=== PATIENT | male | born 1995 | race Caucasian/White ===

== ENCOUNTER 2016-11-27 16:24 | Emergency (ER) | payer BC ==
[~2016-11-27] VITALS: Ht 188 cm; Wt 78.5 kg
[~2016-11-27 16:24] MED LIST: ANTICRE6 PO
[2016-11-27 16:35] VITALS: TEMP 38.1; Ht 188 cm; Wt 78.5 kg
[2016-11-27] MEDS ORDERED: ONDANSETRON INJ 2 MG/ML 2 ML VIAL IV STA (16:46)
[2016-11-27] MEDS ORDERED: ALBUT/IPRATROP 3MG/0.5MG NEB 3 ML VIAL INH STA (16:46)
[2016-11-27] MEDS ORDERED: KETOROLAC TROMETHAMINE 30 MG/ML VIAL IV STA (16:46)
[2016-11-27] MEDS ORDERED: SODIUM CHLORIDE 0.9% 1000ML 1,000 ML IV STA (16:46)
[2016-11-27] MEDS ORDERED: PRVHFAIN INH (17:16)
[2016-11-27] MEDS ORDERED: ACET-176 PO (17:16)
[2016-11-27] MEDS ORDERED: IBUP-103 PO (17:16)
[2016-11-27 17:25] VITALS: O2SAT 99
[2016-11-27 17:33] LABS: HEMATOCRIT 40.6 % (42-52); MEAN CELL VOLUME 89.8 fL (80-100); MEAN CORPUSCULAR HEMOGLOBIN 31.2 pg (25-34); MEAN CORPUSCULAR HGB CONC 34.7 g/dl (32-36); MEAN PLATELET VOLUME 10.3 fL (7.4-10.4); PLATELET COUNT 267 K/uL (130-400); RED BLOOD COUNT 4.52 M/uL (4.7-6.1); WHITE BLOOD COUNT 17.37 K/uL (4.8-10.8)
--- NOTE | 2016-11-27 17:35 | EMERGENCY ROOM VISIT NOTE ---
History Report prepared by Lulu: Gordon Pérez Under the Supervision of: Alissa ClementO. First contact with patient: 16:42 Chief Complaint: RESPIRATORY PROBLEMS Stated Complaint: CHEST PAIN, STIFF NECK, FEVER, CHILLS, MORROW History of Present Illness The patient is a 21 year old male who presents to the Emergency Room with complaints of constant stiff neck beginning one day prior to arrival. He currently rates his discomfort as a 3/10 in severity. The patient associates a fever, chills, headache, right sided chest pain, and a productive cough with today's symptoms. He notes his neck pain worsens with movement. The patient states these associated symptoms have been going on for a week, but he went to [facility] yesterday due to the stiff neck. He notes he was given three medications that have no relieved his symptoms and was referred to the ED for a possible lumbar puncture. He was swabbed for flu, but it was negative and did not receive a chest x-ray. The patient states one of his medications has helped alleviate his cough. He notes he took two pills of Zithromax yesterday and one pill today. The patient denies any medical problems or surgeries. He denies tobacco or alcohol use. The patient denies exposure to sick contacts. 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 A total of 10 systems reviewed and were otherwise negative. Past Medical & Surgical Medical Problems: (1) No Known Active Medical Problems Family History Patient reports no known family medical history. Social History Smoking Status: Never Smoker Marital Status: single Housing Status: lives with roommate Occupation Status: [employer] student Current/Historical Medications Scheduled Cefdinir (Omnicef), 600 MG PO DAILY Scheduled PRN Acetaminophen (Apap Extra Strength), 500 MG PO UD PRN for Pain or Fever Albuterol (Ventolin Hfa), 2 PUFFS INH UD PRN for Shortness of Breath Ibuprofen Tab (Advil), 200 MG PO UD PRN for Pain or Fever Allergies Coded Allergies: No Known Allergies (Unverified , 09/19/15) Physical Exam Vital Signs Date Time Temp Pulse Resp B/P Pulse Ox O2 Delivery O2 Flow Rate FiO2 11/27/16 20:07 62 18 106/61 100 11/27/16 18:31 83 18 121/64 97 Room Air 11/27/16 17:25 99 Room Air 11/27/16 17:25 82 11/27/16 16:40 96 Room Air 11/27/16 16:35 38.1 102 22 118/77 99 Room Air Physical Exam GENERAL: Patient is awake, alert, and in no acute distress. Patient is resting comfortably and showing no signs of anxiety EYES: The conjunctivae are clear. The pupils are round and reactive. EARS, NOSE, MOUTH AND THROAT: The nose is without any evidence of any deformity. Clear rhinorrhea bilaterally. Post oral pharynx was clear. Mucous membranes are moist tongue is midline NECK: The patient did have some pain with range of motion, especially with flexion and extension. The neck is nontender and supple. RESPIRATORY: Diminished breath sounds at the right base. Scattered rhonchi noted throughout. CARDIOVASCULAR: Tachycardic but regular rhythm. No definite murmurs noted to auscultations. GASTROINTESTINAL: The abdomen is soft. Bowel sounds are present in all quadrants. Abdomen is nontender MUSCULOSKELETAL/EXTREMITIES: There is no evidence of gross deformity full range of motion is noted in the hips and shoulders SKIN: There is no obvious evidence of any rash. There are no petechiae, pallor or cyanosis noted. NEUROLOGIC: Patient is awake alert and oriented x3 strength is symmetric patellar reflexes are 2+ bilaterally Medical Decision & Procedures ER Provider Diagnostic Interpretation: Radiology results as stated below per my review and radiologist interpretation: CHEST 2 VIEWS ROUTINE CLINICAL HISTORY: Fever. Sepsis. COMPARISON STUDY: No previous studies for comparison. FINDINGS: Lung volumes are normal. There is no pneumothorax or pleural effusion. Right middle lobe consolidation is present. There is no evidence of pulmonary edema. Cardiac size is normal. Mediastinal contours are normal. There may be biapical scarring or blebs/bullae. IMPRESSION: Right middle lobe consolidation suggestive of pneumonia. Post treatment radiographs to ensure resolution are recommended. Electronically signed by: Jamie Lemons M.D. 11/27/2016 5:[address] OF THE HEAD WITHOUT CONTRAST CLINICAL HISTORY: Headache. Fever. COMPARISON STUDY: No previous studies for comparison. CT DOSE: 537.48 mGy.cm TECHNIQUE: Helical axial images of the head were obtained without IV contrast. Automated exposure control was utilized for the study. FINDINGS: No acute intracranial hemorrhage, midline shift or mass effect is present. Brain volume is normal. Ventricular system is normal. The basilar cisterns are patent. No extra-axial collections are present. Lo-white differentiation is maintained. There are no findings to suggest acute dural sinus thrombosis or acute territorial infarct. There are no significant calvarial abnormalities. Visualized portions of the sinuses and mastoid air cells are clear. IMPRESSION: No acute intracranial findings. Electronically signed by: Jamie Lemons M.D. 11/27/2016 6:05 PM Laboratory Results 11/27/16 17:20 Red Blood Count 4.52, Mean Corpuscular Volume 89.8, Mean Corpuscular Hemoglobin 31.2, Mean Corpuscular Hemoglobin Concent 34.7, Mean Platelet Volume 10.3, Neutrophils (%) (Auto) 78.9, Lymphocytes (%) (Auto) 14.7, Monocytes (%) (Auto) 5.8, Eosinophils (%) (Auto) 0.1, Basophils (%) (Auto) 0.2, Neutrophils # (Auto) 13.70, Lymphocytes # (Auto) 2.56, Monocytes # (Auto) 1.01, Eosinophils # (Auto) 0.01, Basophils # (Auto) 0.03 11/27/16 17:20 Test 11/27/16 17:20 White Blood Count 17.37 K/uL (4.8-10.8) Red Blood Count 4.52 M/uL (4.7-6.1) Hemoglobin 14.1 g/dL (14.0-18.0) Hematocrit 40.6 % (42-52) Mean Corpuscular Volume 89.8 fL (80-100) Mean Corpuscular Hemoglobin 31.2 pg (25-34) Mean Corpuscular Hemoglobin Concent 34.7 g/dl (32-36) Platelet Count 267 K/uL (130-400) Mean Platelet Volume 10.3 fL (7.4-10.4) Neutrophils (%) (Auto) 78.9 % Lymphocytes (%) (Auto) 14.7 % Monocytes (%) (Auto) 5.8 % Eosinophils (%) (Auto) 0.1 % Basophils (%) (Auto) 0.2 % Neutrophils # (Auto) 13.70 K/uL (1.4-6.5) Lymphocytes # (Auto) 2.56 K/uL (1.2-3.4) Monocytes # (Auto) 1.01 K/uL (0.11-0.59) Eosinophils # (Auto) 0.01 K/uL (0-0.5) Basophils # (Auto) 0.03 K/uL (0-0.2) RDW Standard Deviation 42.5 fL (36.4-46.3) RDW Coefficient of Variation 12.9 % (11.5-14.5) Immature Granulocyte % (Auto) 0.3 % Immature Granulocyte # (Auto) 0.06 K/uL (0.00-0.02) Erythrocyte Sedimentation Rate 31 mm/hr (0-14) Anion Gap 9.0 mmol/L (3-11) Est Creatinine Clear Calc Drug Dose 109.0 ml/min Estimated GFR () 100.3 Estimated GFR (Non- 86.5 BUN/Creatinine Ratio 10.0 (10-20) Calcium Level 9.3 mg/dl (8.5-10.1) Total Bilirubin 0.8 mg/dl (0.2-1) Direct Bilirubin 0.2 mg/dl (0-0.2) Aspartate Amino Transf (AST/SGOT) 14 U/L (15-37) Alanine Aminotransferase (ALT/SGPT) 24 U/L (12-78) Alkaline Phosphatase 57 U/L (45-117) C-Reactive Protein 18.20 mg/dl (0-0.29) Total Protein 8.3 gm/dl (6.4-8.2) Albumin 3.8 gm/dl (3.4-5.0) Laboratory results per my review. Medications Administered Medications (Trade) Dose Ordered Sig/Zainab Route Start Time Stop Time Status Last Admin Dose Admin Ketorolac Tromethamine 30 mg 30 mg NOW STAT IV 11/27/16 16:46 11/27/16 16:47 DC 11/27/16 17:17 30 MG Sodium Chloride (Nss 1000ml) 1,000 ml @ 999 mls/hr Q1H1M STAT IV 11/27/16 16:46 11/27/16 17:46 DC 11/27/16 16:46 999 MLS/HR Ondansetron HCl (Zofran Inj) 4 mg NOW STAT IV 11/27/16 16:46 11/27/16 16:47 DC 11/27/16 17:16 4 MG Albuterol/ Ipratropium 3 ml 3 ml NOW STAT INH 11/27/16 16:46 11/27/16 16:47 DC 11/27/16 17:18 3 ML Ceftriaxone Sodium/Dextrose (Rocephin Inj/D5 50ml) 70 ml @ 100 mls/hr ONE STAT IV 11/27/16 17:50 11/27/16 18:31 DC 11/27/16 18:16 100 MLS/HR Dexamethasone Sodium Phosphate (Decadron Inj) 10 mg NOW ONCE IV 11/27/16 18:00 11/27/16 18:01 DC 11/27/16 18:15 10 MG ED Course 1644: The patient was evaluated in room B12B. A complete history and physical examination were performed. 1645: Ordered Duoneb 3 ml INH, Zofran Inj 4 mg IV, Sodium Chloride 1,000 ml @ 999 mls/hr IV, Toradol Inj 30 mg iV. 1750: Ordered Ceftriaxone Sodium 2,000 mg/Dextrose 70 ml @ 100 mls/hr IV. 1800: Ordered Decadron Inj 10 mg IV. 1949: Reevaluated the patient at this time, and he would not like a lumbar puncture. 1954: Upon reevaluation, the patient is doing well. I discussed the results and treatment plan with him. He verbalized agreement of the treatment plan. The patient was discharged home. Medical Decision Etiologies such as viral syndrome, otitis, pharyngitis, pneumonia, influenza, meningitis, urinary tract infection, sepsis, bacteremia, as well as others were entertained. Nursing notes reviewed. The patient is a 21-year-old male who presents to emergency department for an evaluation of cough and fever. The patient also had neck pain as well as headache. He was seen initially at the [facility]. He was started on medications for bronchitis including Zithromax. I discussed the patient's laboratory and radiographic studies with him. He was found have signs of an infiltrate on chest x-ray. He was started on IV antibiotics in the emergency department. I discussed the patient's presentation with his mother. He was sent to the emergency department from the [facility] for possible lumbar puncture and for meningitis workup. The patient does not appear to have true meningismus. He does not even of a headache at this time. He was treated with IV fluids IV pain medicine and IV antibiotics in the emergency department for presumed pneumonia. He was encouraged to rest and avoid any strenuous activity. I discussed his condition with his mother over the phone. He was also encouraged to follow-up with his primary care physician for reevaluation but return to emergency department immediately if he developed worsening headache high fever severe pain nausea vomiting or if need arises. Impression Primary Impression: Pneumonia Additional Impression: Fever Scribe Attestation The scribe's documentation has been prepared under my direction and personally reviewed by me in its entirety. I confirm that the note above accurately reflects all work, treatment, procedures, and medical decision making performed by me. Departure Information Dispostion Home / Self-Care Prescriptions Cefdinir (Omnicef) 300 Mg Cap 600 MG PO DAILY, #10 CAP Prov: Sai Almendarez, DO 11/27/16 Referrals [facility] (PCP) Forms HOME CARE DOCUMENTATION FORM, IMPORTANT VISIT INFORMATION, WORK / SCHOOL INSTRUCTIONS Patient Instructions My [facility], Pneumonia Additional Instructions Follow-up with [facility] for reevaluation. Continue using Motrin and Tylenol as directed for fever and body aches. Rest and avoid any strenuous activity. Return to the emergency Department immediately if he develop worsening symptoms such as severe headache severe neck pain seizures or any other worrisome symptoms develop. Problem Qualifiers
[2016-11-27 17:49] LABS: BASO % 0.2 %; BASO ABS # 0.03 K/uL (0-0.2); COMPLETE YES; EOS % 0.1 %; IG% 0.3 %; LYMPH % 14.7 %; LYMPH ABS # 2.56 K/uL (1.2-3.4); MONO % 5.8 %; NEUT % 78.9 %
[2016-11-27] MEDS ORDERED: CEFTRIAXONE SOD INJ 2,000 MG in DEXTROSE 5% 50ML 50 ML IV STA (17:50)
--- NOTE | 2016-11-27 17:53 | DIAGNOSTIC IMAGING REPORT ---
CHEST 2 VIEWS ROUTINE CLINICAL HISTORY: Fever. Sepsis. COMPARISON STUDY: No previous studies for comparison. FINDINGS: Lung volumes are normal. There is no pneumothorax or pleural effusion. Right middle lobe consolidation is present. There is no evidence of pulmonary edema. Cardiac size is normal. Mediastinal contours are normal. There may be biapical scarring or blebs/bullae. IMPRESSION: Right middle lobe consolidation suggestive of pneumonia. Post treatment radiographs to ensure resolution are recommended. Electronically signed by: Jamie Lemons M.D. 11/27/2016 5:51 PM Dictated Date/Time: 11/27/2016 5:50 PM
[2016-11-27 17:57] LABS: C-REACTIVE PROTEIN 18.2 mg/dl (0-0.29); CALCIUM 9.3 mg/dl (8.5-10.1); CREATININE 1.2 mg/dl (0.60-1.40); POTASSIUM 4.2 mmol/L (3.5-5.1)
[2016-11-27] MEDS ORDERED: DEXAMETHASONE SOD INJ 10 MG/ML VIAL IV ONE (18:00)
--- NOTE | 2016-11-27 18:06 | DIAGNOSTIC IMAGING REPORT ---
CT OF THE HEAD WITHOUT CONTRAST CLINICAL HISTORY: Headache. Fever. COMPARISON STUDY: No previous studies for comparison. CT DOSE: 537.48 mGy.cm TECHNIQUE: Helical axial images of the head were obtained without IV contrast. Automated exposure control was utilized for the study. FINDINGS: No acute intracranial hemorrhage, midline shift or mass effect is present. Brain volume is normal. Ventricular system is normal. The basilar cisterns are patent. No extra-axial collections are present. Lo-white differentiation is maintained. There are no findings to suggest acute dural sinus thrombosis or acute territorial infarct. There are no significant calvarial abnormalities. Visualized portions of the sinuses and mastoid air cells are clear. IMPRESSION: No acute intracranial findings. Electronically signed by: Jamie Lemons M.D. 11/27/2016 6:05 PM Dictated Date/Time: 11/27/2016 6:02 PM
[2016-11-27] MEDS ORDERED: CEFD1CAP14 PO (19:59)
[2016-11-27 20:07] VITALS: BP 106/61; PULSE 62; O2SAT 100
== END 2016-11-27 20:09 | disposition home or self-care (01) ==
LOC: C.EDB 16:25
DX: J18.9 Pneumonia, unspecified organism (principal)

== ENCOUNTER 2017-08-09 02:49 | Emergency (ER) | payer BC ==
[~2017-08-09] VITALS: Ht 188 cm; Wt 83.8 kg
[~2017-08-09 02:49] MED LIST changes: +ACET-176 PO; -ANTICRE6 PO; +IBUP-103 PO; +PRVHFAIN INH
[2017-08-09 02:55] VITALS: TEMP 36.4; Ht 188 cm; Wt 83.8 kg
[2017-08-09 03:04] VITALS: O2SAT 97
[2017-08-09 03:36] LABS: BUN/CREATININE RATIO 14.5 (10-20); CALCIUM 8.8 mg/dl (8.5-10.1); CREATININE 1.05 mg/dl (0.60-1.40); POTASSIUM 3.5 mmol/L (3.5-5.1)
--- NOTE | 2017-08-09 03:43 | EMERGENCY ROOM VISIT NOTE ---
History Report prepared by Lulu: Chet Key Under the Supervision of: Dr. Mariama Douglass D.O. First contact with patient: 02:51 Chief Complaint: ALCOHOL OVERDOSE Stated Complaint: ALCOHOL OVERDOSE History of Present Illness The patient is a 22 year old male who presents to the Emergency Room for an alcohol overdose occurring prior to arrival. Per the EMS, the patient was found unresponsive in a stairwell prior to arrival after drinking too much alcohol. He denies any falls. The history is limited secondary to intoxication. Source of History: parent, EMS History Limited By: intoxication Onset: prior to arrival Position: other (global) Quality: other (alcohol overdose) Review of Systems History was limited secondary to intoxication Past Medical & Surgical Medical Problems: (1) No Known Active Medical Problems Family History Patient reports no known family medical history. Social History Smoking Status: Never Smoker Marital Status: single Housing Status: lives with roommate Occupation Status: [employer] student Current/Historical Medications No Active Prescriptions or Reported Meds Allergies Coded Allergies: No Known Allergies (Unverified , 08/09/17) Physical Exam Vital Signs Date Time Temp Pulse Resp B/P (MAP) Pulse Ox O2 Delivery O2 Flow Rate FiO2 08/09/17 08:51 68 16 155/81 94 08/09/17 06:06 64 08/09/17 06:04 64 16 111/44 94 Room Air 08/09/17 05:17 62 16 115/46 95 Room Air 08/09/17 04:06 85 18 104/58 100 Room Air 08/09/17 03:21 56 18 108/54 96 Room Air 08/09/17 03:04 97 Room Air 08/09/17 02:56 56 08/09/17 02:55 95 Room Air 08/09/17 02:55 36.4 64 18 129/83 95 Room Air Physical Exam GENERAL: Smells EtOH, somnolent but arousable. No physical evidence of trauma HEAD: NC/AT EYE EXAM: normal conjunctiva, PERRL and EOM's grossly intact OROPHARYNX: no exudate, no erythema, lips, buccal mucosa, and tongue normal and mucous membranes are moist NECK: supple, no nuchal rigidity, no adenopathy, non-tender LUNGS: Clear to auscultation. Normal chest wall mechanics HEART: no murmurs, S1 normal and S2 normal ABDOMEN: abdomen soft, non-tender, normo-active bowel sounds, no masses, no rebound or guarding. BACK: No evidence of trauma. No step off. PELVIS: Pelvis is stable SKIN: no rashes and no bruising UPPER EXTREMITIES: upper extremities are grossly normal. No signs of trauma. Normal pulses LOWER EXTREMITIES: No pitting edema. No signs of trauma. Normal pulses NEURO EXAM: Limited by intoxication. Answers some questions. Medical Decision & Procedures Laboratory Results 08/09/17 03:05 Test 08/09/17 03:05 Anion Gap 11.0 mmol/L (3-11) Est Creatinine Clear Calc Drug Dose 129.4 ml/min Estimated GFR () 117.0 Estimated GFR (Non- 101.0 BUN/Creatinine Ratio 14.5 (10-20) Calcium Level 8.8 mg/dl (8.5-10.1) Ethyl Alcohol mg/dL 282.0 mg/dl (0-3) Laboratory results per my review. ED Course 0251: The patient was evaluated in room A3. A complete history and physical exam was performed. 0614: I reevaluated the patient, and he was sleeping with stable vitals 0755: Pt now easily awakens. Doesn't remember coming to ER. Denies any injury or pain. Medical Decision Differential diagnosis: Etiologies such as alcohol intoxication, toxicologic, infection, hypoglycemia, electrolyte abnormalities, cardiac sources, intracerebral event, neurologic, as well as others were entertained. Patient well-appearing here. Patient initially brought in for alcohol overdose , no apparent trauma, patient denied any injury. Patient monitored here and repeat exams were unchanged. Vital signs stable. Patient had no complaints of pain or injury. Patient was able to find a sober friend. Discussed with him symptoms watch and return for, appropriate use of alcohol, he verbalized understanding was agreeable with plan. I have a low suspicion for any additional traumatic injury. Patient tolerating by mouth and a bili with a steady gait at time of discharge. Medication Reconcilliation Current Medication List: was personally reviewed by me Blood Pressure Screening Patient's blood pressure: Normal blood pressure Impression Primary Impression: Alcoholic intoxication Scribe Attestation The scribe's documentation has been prepared under my direction and personally reviewed by me in its entirety. I confirm that the note above accurately reflects all work, treatment, procedures, and medical decision making performed by me. Departure Information Dispostion Home / Self-Care Prescriptions No Active Prescriptions or Reported Meds Referrals [facility] (PCP) Forms HOME CARE DOCUMENTATION FORM, IMPORTANT VISIT INFORMATION Patient Instructions My [facility] Additional Instructions Please drink responsibly and in a safe location. Do not drink and drive. If you have any new or concerning symptoms, please return the emergency room. Problem Qualifiers Primary Impression: Alcoholic intoxication Complication of substance-induced condition: uncomplicated Qualified Codes: F10.920 - Alcohol use, unspecified with intoxication, uncomplicated
[2017-08-09 08:51] VITALS: BP 155/81; PULSE 68; O2SAT 94
== END 2017-08-09 08:51 | disposition home or self-care (01) ==
LOC: EDBD 02:49 → C.EDA 02:51
DX: F10.129 Alcohol abuse with intoxication, unspecified (principal)